=== PATIENT | female | born 2005 | race Caucasian/White ===

== ENCOUNTER 2024-04-07 15:59 | Emergency (ER) | payer MEDICAID ==
[~2024-04-07] VITALS: Ht 162.6 cm; Wt 74.1 kg
[~2024-04-07 15:59] MED LIST: PROTONIX20 M1 PO; ZOFRAN ODT4 MG PO
[2024-04-07 16:52] LABS: EOS # 0.09 K/mm3 (0.04-0.40); EOS % 1.1 % (0.1-4.0); HEMOGLOBIN 8.7 g/dL (12.0-15.0); MEAN CELL VOLUME 78 fl (78-95); MEAN CORPUSCULAR HEMOGLOBIN 24 pg (26-32); MEAN CORPUSCULAR HGB CONC 31 g/dL (33-37); MEAN PLATELET VOLUME 9.7 fl (7.4-10.4); MONO # 0.57 K/mm3 (0.10-0.60); NEU # 5.76 K/mm3 (1.40-6.50); PLATELET COUNT 266 K/mm3 (130-400); RED CELL DISTRIBUTION WIDTH 14.4 % (11.5-14.5); WHITE BLOOD COUNT 7.9 K/mm3 (4.8-10.8)
[2024-04-07 16:53] LABS: ALBUMIN 3.6 g/dL (3.5-5.0)
[2024-04-07 16:54] LABS: CALCIUM 9.2 mg/dL (8.3-10.5)
[2024-04-07 16:55] LABS: TOTAL PROTEIN 6.9 g/dL (6.4-8.3)
[2024-04-07 16:57] LABS: TOTAL BILIRUBIN 0.3 mg/dL (0.2-1.2)
[2024-04-07] MEDS ORDERED: Ondansetron 4 MG/2 ML VIAL IV ONE (17:00)
[2024-04-07] MEDS ORDERED: NS 1,000 ML IV SCH (17:00)
[2024-04-07 18:05] LABS: URINE APPEARANCE CLOUDY (CLEAR); URINE BILIRUBIN NEGATIVE (NEGATIVE); URINE BLOOD NEGATIVE (NEGATIVE); URINE COLOR LIGHT YELLOW (YELLOW); URINE GLUCOSE NEGATIVE (NEGATIVE); URINE KETONE NEGATIVE (NEGATIVE); URINE LEUKOCYTE ESTERASE 2+ (NEGATIVE); URINE NITRATE NEGATIVE (NEGATIVE); URINE PROTEIN(semi-quant) NEGATIVE (NEGATIVE); URINE WBC 31-50 /hpf (0-3)
[2024-04-07] MEDS ORDERED: Nitrofurantoin (Mono/Macro) 100 MG CAPSULE PO ONE (18:15)
[2024-04-07] MEDS ORDERED: MACROBID 100 M100 MG PO (18:26)
[2024-04-07 18:48] VITALS: BP 92/51
== END 2024-04-07 18:48 | disposition home or self-care (01) ==
LOC: ED 15:59
PROVIDERS: Nurse Practitioner
DX: O23.42 Unspecified infection of urinary tract in pregnancy, second trimester (principal); N39.0 Urinary tract infection, site not specified; O99.012 Anemia complicating pregnancy, second trimester; D64.9 Anemia, unspecified; O99.282 Endocrine, nutritional and metabolic diseases complicating pregnancy, second trimester; E86.0 Dehydration; O99.412 Diseases of the circulatory system complicating pregnancy, second trimester; G90.A Postural orthostatic tachycardia syndrome [POTS]; Z3A.26 26 weeks gestation of pregnancy
CPT/HCPCS: J2405; J7030